=== PATIENT | female | born 1930 | race Caucasian/White ===

== ENCOUNTER 2018-04-05 09:51 | Inpatient (IN) | payer MEDICARE ==
[2018-04-05] VITALS (13 sets, daily range): BP systolic 119–152; BP diastolic 38–77
[~2018-04-05] VITALS: Ht 165.1 cm; Wt 61.2 kg
[2018-04-05] MEDS ORDERED: AMLODIPINE BES2.5 MG ORAL (09:55)
[2018-04-05] MEDS ORDERED: SYNTHROID137 MCG ORAL (09:55)
[2018-04-05] MEDS ORDERED: HYSINGLA ER20 MG PO (09:55)
[2018-04-05] MEDS ORDERED: PROTONIX20 MG ORAL (09:55)
[2018-04-05 10:13] LABS: HEMATOCRIT 17.8 % (37.0-47.0); MEAN CORPUSCULAR VOLUME 65 FL (80-99); PLATELET COUNT 199 K/UL (150-450); RED BLOOD COUNT 2.73 M/UL (4.20-5.40); WHITE BLOOD COUNT 10.8 K/UL (4.8-10.8)
[2018-04-05 10:21] LABS: ANION GAP 13 mmol/L (5-15); BLOOD UREA NITROGEN 41 mg/dL (7-18); CALCIUM 7.7 MG/DL (8.5-10.1); CARBON DIOXIDE 21 MMOL/L (21-32); CHLORIDE 109 MMOL/L (98-107); CREATININE 0.7 MG/DL (0.55-1.30); POTASSIUM 4.2 MMOL/L (3.5-5.1); SODIUM 143 MMOL/L (136-145)
[2018-04-05 10:27] LABS: ALANINE AMINOTRANSFERASE 12 U/L (12-78); ALBUMIN 2.9 G/DL (3.4-5.0); ALBUMIN/GLOBULIN RATIO 1.1 (1.0-2.7); ALKALINE PHOSPHATASE 57 U/L (46-116); ASPARTATE AMINO TRANSFERASE 15 U/L (15-37); BILIRUBIN,TOTAL 0.3 MG/DL (0.2-1.0)
--- NOTE | 2018-04-05 10:33 | Emergency Room Report ---
History of Present Illness General Chief Complaint: Gastrointestinal Bleed Source: EMS Present Illness HPI 88F by ambulance called by nephew from nephew's home. Very weak, diarrhea ? blood. Pt. very weak, c/o diarrhea. No cp, sob, abd pain. Further info from nephew: pt. is healthy, independent 88 lives in [place], here visiting and was on way to [place] when became suddenly weak, diarrhea. Pt. adds that she has had similar ~4-5x in the past. She has had several EGD/ colonoscopies in the past without identifying source. She has required blood transfusions she thinks three separate times. Presumed PUD. No anticoagulation meds. Meds: Synthroid, Citalopram, Pantoprazole Hx. limited due to clinical condition. No old EMR here. Allergies: Coded Allergies: No Known Allergies (Unverified , 04/05/18) Patient History Now: No Nursing Documentation-PMH Hx Gastrointestinal Problems: Yes Review of Systems Constitutional: Reports: see HPI Gastrointestinal: Reports: see HPI, nausea, melena, hematemesis All Other Systems: limited Physical Exam Vital Signs Date Time Temp Pulse Resp B/P (MAP) Pulse Ox O2 Delivery O2 Flow Rate FiO2 04/05/18 09:46 98.6 76 20 130/63 96 Room Air General Appearance: severe distress, lethargic, thin, other - pale Head: normocephalic, atraumatic Eyes: bilateral eye normal inspection - pale conjunctiva ENT: hearing grossly normal, normal voice Neck: full range of motion, supple Respiratory: no respiratory distress, speaking full sentences Rectal: black stool, heme positive stool Genitourinary: normal inspection Musculoskeletal: no calf tenderness Neurologic: other - nonfocal; ROA, answers questions; tired Psychiatric: mood/affect normal Skin: pallor, other - poor turgor Medical Decision Making Diagnostic Impression: Primary Impression: Gastrointestinal hemorrhage Additional Impression: Anemia due to GI blood loss ER Course acute microcytic anemia; no old labs to compare. Vitals continue to be very good HR 81, 132/54, alert and oriented d/w Dr. Samson d/w Dr. Martnis CRITICAL CARE NOTE: The patient was at risk for respiratory and cardiac failure and required aggressive intervention by me. Critical care time provided by me, excluding other separately billable procedures exceeded 35 minutes. This time included: Obtaining history from: patient, EMS, family Examination of the patient Development of treatment plan Ordering and reviewing diagnostic test results Discussion of treatment plan with natural remedy consultant, patient, family Coordinating care with nursing and respiratory therapy Supervising IV medications Multiple reassessments Discussion with the admitting physician EKG Diagnostic Results Rate: normal ST Segments: no acute changes ASA given to the pt in ED: No Rhythm Strip Diag. Results Rhythm Strip Time: 10:33 EP Interpretation: yes Rate: 88 Rhythm: NSR Last Vital Signs Date Time Temp Pulse Resp B/P (MAP) Pulse Ox O2 Delivery O2 Flow Rate FiO2 04/05/18 09:46 98.6 76 20 130/63 96 Room Air Status: unchanged Disposition: ADMITTED INPATIENT Condition: Critical Stewart Sterling M.D. Apr 05, 2018 10:33
[2018-04-05 11:39] LABS: APPEARANCE,URINE CLEAR; BILIRUBIN, URINE NEGATIVE (NEGATIVE); COLOR,URINE PALE YELLOW; GLUCOSE, URINE (UA) NEGATIVE (NEGATIVE); KETONES,URINE NEGATIVE (NEGATIVE); LEUKOCYTE ESTERASE ,URINE 1+ (NEGATIVE); NITRITE,URINE NEGATIVE (NEGATIVE); PH,URINE 6.5 (4.5-8.0); PROTEIN,URINE NEGATIVE (NEGATIVE); UROBILINOGEN,URINE NORMAL MG/DL (0.0-1.0)
--- NOTE | 2018-04-05 11:44 | Diagnostic Imaging Report ---
Indication: Chest pain Comparison: None A single view chest radiograph was obtained. Findings: No definite infiltrate or pulmonary vascular congestion identified. Large hiatal hernia noted. The heart is enlarged. The aorta is mildly enlarged consistent with atherosclerotic vascular disease. The bones are osteopenic. Impression: No acute disease
[2018-04-05 12:11] LABS: INR 1.1 (0.9-1.1)
--- NOTE | 2018-04-05 12:57 | GI Initial Consult Note ---
History of Present Illness General Date patient seen: Apr 05, 2018 Time patient seen: 12:51 Reason for Hospitalization: Gastrointestinal Bleed Reason for Consultation: GI BLEED Present Illness HPI 88F by ambulance called by nephew from nephew's home. Very weak, diarrhea ? blood. Pt. very weak, c/o diarrhea. No cp, sob, abd pain. Further info from nephew: pt. is healthy, independent 88 lives in [place], here visiting and was on way to [place] when became suddenly weak, diarrhea. Pt. adds that she has had similar ~4-5x in the past. She has had several EGD/ colonoscopies in the past without identifying source. She has required blood transfusions she thinks three separate times. Presumed PUD. No anticoagulation meds. Meds: Synthroid, Citalopram, Pantoprazole Hx. limited due to clinical condition. No old EMR here. GI consulted for GI bleed. Pt seen, awake A&O NAD with no active s/sx of N/V. The patient presents today with severe anemia, low hgb of 5.0, reports of multiple episodes of melena and one episode of coffee ground emesis. Family member at bedside, they report the patient has had multiple endoscopies and colonoscopies in the past, unable to find a specific source of bleed. In addition, she's also had a small bowel capsule endoscopy which yielded unremarkable results. The patient is currently being transfused. Home Meds Reported Medications Hydrocodone Bitartrate (Hysingla ER) 20 Mg Tab.er.24h, 20 MG PO, TAB 04/05/18 Pantoprazole Sodium (PROTONIX) 20 Mg Tablet.dr, 20 MG ORAL DAILY, TAB 04/05/18 Levothyroxine Sodium (SYNTHROID) 137 Mcg Tablet, ORAL DAILY, TAB Take in the morning on an empty stomach, at least 30 minutes before food. 04/05/18 Amlodipine Besylate* (AMLODIPINE BESYLATE*) 2.5 Mg Tablet, 2.5 MG ORAL DAILY, TAB 04/05/18 Med list reviewed/reconciled: Yes Allergies: Coded Allergies: No Known Allergies (Unverified , 04/05/18) Patient History History Provided By: Patient, Family Member PMH Narrative Hx Gastrointestinal Problems: Yes GI bleed unknown source HH multiple endoscopies and colonoscopies Social History: Denies: smoking, alcohol use, drug use, other Review of Systems All Other Systems: negative except mentioned in HPI Physical Exam Vital Signs Date Time Temp Pulse Resp B/P (MAP) Pulse Ox O2 Delivery O2 Flow Rate FiO2 04/05/18 09:46 98.6 76 20 130/63 96 Room Air Sp02 EP Interpretation: reviewed, normal Labs Laboratory Tests Test 04/05/18 10:00 04/05/18 11:10 04/05/18 11:46 White Blood Count 10.8 K/UL (4.8-10.8) Red Blood Count 2.73 M/UL (4.20-5.40) L Hemoglobin 5.0 G/DL (12.0-16.0) *L Hematocrit 17.8 % (37.0-47.0) L Mean Corpuscular Volume 65 FL (80-99) L Mean Corpuscular Hemoglobin 18.3 PG (27.0-31.0) L Mean Corpuscular Hemoglobin Concent 28.1 G/DL (32.0-36.0) L Red Cell Distribution Width 19.0 % (11.6-14.8) H Platelet Count 199 K/UL (150-450) Mean Platelet Volume 7.6 FL (6.5-10.1) Neutrophils (%) (Auto) % (45.0-75.0) Lymphocytes (%) (Auto) % (20.0-45.0) Monocytes (%) (Auto) % (1.0-10.0) Eosinophils (%) (Auto) % (0.0-3.0) Basophils (%) (Auto) % (0.0-2.0) Differential Total Cells Counted 100 Neutrophils % (Manual) 85 % (45-75) H Lymphocytes % (Manual) 12 % (20-45) L Monocytes % (Manual) 3 % (1-10) Eosinophils % (Manual) 0 % (0-3) Basophils % (Manual) 0 % (0-2) Band Neutrophils 0 % (0-8) Platelet Estimate Adequate Platelet Morphology Normal Hypochromasia 3+ Anisocytosis 1+ Microcytosis 1+ Sodium Level 143 MMOL/L (136-145) Potassium Level 4.2 MMOL/L (3.5-5.1) Chloride Level 109 MMOL/L (98-107) H Carbon Dioxide Level 21 MMOL/L (21-32) Anion Gap 13 mmol/L (5-15) Blood Urea Nitrogen 41 mg/dL (7-18) H Creatinine 0.7 MG/DL (0.55-1.30) Estimat Glomerular Filtration Rate mL/min (>60) Glucose Level 148 MG/DL (74-106) H Calcium Level 7.7 MG/DL (8.5-10.1) L Total Bilirubin 0.3 MG/DL (0.2-1.0) Aspartate Amino Transf (AST/SGOT) 15 U/L (15-37) Alanine Aminotransferase (ALT/SGPT) 12 U/L (12-78) Alkaline Phosphatase 57 U/L (46-116) Total Protein 5.6 G/DL (6.4-8.2) L Albumin 2.9 G/DL (3.4-5.0) L Globulin 2.7 g/dL Albumin/Globulin Ratio 1.1 (1.0-2.7) Lipase 76 U/L (73-393) Urine Color Pale yellow Urine Appearance Clear Urine pH 6.5 (4.5-8.0) Urine Specific [place] 1.010 (1.005-1.035) Urine Protein Negative (NEGATIVE) Urine Glucose (UA) Negative (NEGATIVE) Urine Ketones Negative (NEGATIVE) Urine Blood Negative (NEGATIVE) Urine Nitrite Negative (NEGATIVE) Urine Bilirubin Negative (NEGATIVE) Urine Urobilinogen Normal MG/DL (0.0-1.0) Urine Leukocyte Esterase 1+ (NEGATIVE) H Urine RBC 0-2 /HPF (0 - 2) Urine WBC 5-10 /HPF (0 - 2) H Urine Squamous Epithelial Cells Occasional /LPF Urine Bacteria Few /HPF (NONE) Prothrombin Time 11.4 SEC (9.30-11.50) Prothromb Time International Ratio 1.1 (0.9-1.1) General Appearance: well appearing, no apparent distress, alert, thin Head: normocephalic EENT: PERRL/EOMI, normal ENT inspection Neck: supple Respiratory: normal breath sounds, no respiratory distress Cardiovascular: normal rate Gastrointestinal: normal inspection, non tender, soft, normal bowel sounds, non -distended Rectal: deferred Genitourinary: no CVA tenderness Musculoskeletal: normal inspection, back normal Neurologic: normal inspection, alert, oriented x3, responsive Psychiatric: normal inspection, judgement/insight normal, memory normal Skin: normal inspection, normal color, no rash, warm/dry, palpation normal, well hydrated Lymphatic: normal inspection, no adenopathy GI: Plan Problems: (1) Gastrointestinal hemorrhage (2) Anemia due to GI blood loss Plan EGD scheduled for today. - maintain NPO transfusion currently running will follow with additional recommendations post procedure Discussed with Dr. Park. Thank you for this patient referral, we will follow. The patient was seen and examined at bedside and all new and available data was reviewed in the patients chart. I agree with the above findings, impression and plan. (Patient seen earlier today. Signature stamp does not reflect patient encounter time.). - MD Elsa Emery,[facility] ADDICTION COUNSELOR Apr 05, 2018 12:57
[2018-04-05] MEDS ORDERED: Nitroglycerin Subl 0.4mg tab SL PRN (13:15)
--- NOTE | 2018-04-05 13:48 | Consultation ---
History of Present Illness General Date patient seen: Apr 05, 2018 Chief Complaint: Gastrointestinal Bleed Reason for Consultation: GI BLEED Present Illness HPI 88 year old female with hx of hypothyroid, tremors, depression brought in by ambulance for CC of weakness , diarrhea, with blood. No cp, sob, abd pain. Pt. adds that she has had similar ~4-5x in the past. She has had several EGD/ colonoscopies in the past without identifying source. She has required blood transfusions she thinks three separate times. Her Hem was around 5. She was started to ge PRBC in ER and admitted to [facility]. Pt was seen in ER room 6 while primary was present as well. Allergies: Coded Allergies: No Known Allergies (Unverified , 04/05/18) Medication History Scheduled Amlodipine Besylate* (Amlodipine Besylate*), 2.5 MG ORAL DAILY, (Reported) Levothyroxine Sodium (Synthroid), Unknown Dose ORAL DAILY, (Reported) Pantoprazole Sodium (Protonix), 20 MG ORAL DAILY, (Reported) Miscellaneous Medications Hydrocodone Bitartrate (Hysingla ER), 20 MG PO, (Reported) Patient History Healthcare decision maker Resuscitation status Advanced Directive on File Past Medical/Surgical History Past Medical/Surgical History: (1) Hypothyroidism (2) History of hypertension Review of Systems All Other Systems: negative except mentioned in HPI Physical Exam General Appearance: WD/WN Lines, tubes and drains: peripheral HEENT: normocephalic, atraumatic Neck: non-tender, supple Respiratory/Chest: chest wall non-tender, lungs clear Breasts: no masses Cardiovascular/Chest: normal rate Abdomen: normal bowel sounds Last 24 Hour Vital Signs Date Time Temp Pulse Resp B/P (MAP) Pulse Ox O2 Delivery O2 Flow Rate FiO2 04/05/18 13:19 77 16 128/46 99 Room Air 04/05/18 12:20 80 18 130/70 99 Room Air 04/05/18 12:20 98.3 80 18 04/05/18 12:05 83 18 122/38 99 Room Air 04/05/18 12:05 97.9 83 20 04/05/18 10:51 89 20 134/56 99 Room Air 04/05/18 10:00 76 20 Room Air 04/05/18 09:46 98.6 76 20 130/63 96 Room Air Laboratory Tests Test 04/05/18 10:00 04/05/18 11:10 04/05/18 11:46 White Blood Count 10.8 K/UL (4.8-10.8) Red Blood Count 2.73 M/UL (4.20-5.40) L Hemoglobin 5.0 G/DL (12.0-16.0) *L Hematocrit 17.8 % (37.0-47.0) L Mean Corpuscular Volume 65 FL (80-99) L Mean Corpuscular Hemoglobin 18.3 PG (27.0-31.0) L Mean Corpuscular Hemoglobin Concent 28.1 G/DL (32.0-36.0) L Red Cell Distribution Width 19.0 % (11.6-14.8) H Platelet Count 199 K/UL (150-450) Mean Platelet Volume 7.6 FL (6.5-10.1) Neutrophils (%) (Auto) % (45.0-75.0) Lymphocytes (%) (Auto) % (20.0-45.0) Monocytes (%) (Auto) % (1.0-10.0) Eosinophils (%) (Auto) % (0.0-3.0) Basophils (%) (Auto) % (0.0-2.0) Differential Total Cells Counted 100 Neutrophils % (Manual) 85 % (45-75) H Lymphocytes % (Manual) 12 % (20-45) L Monocytes % (Manual) 3 % (1-10) Eosinophils % (Manual) 0 % (0-3) Basophils % (Manual) 0 % (0-2) Band Neutrophils 0 % (0-8) Platelet Estimate Adequate Platelet Morphology Normal Hypochromasia 3+ Anisocytosis 1+ Microcytosis 1+ Sodium Level 143 MMOL/L (136-145) Potassium Level 4.2 MMOL/L (3.5-5.1) Chloride Level 109 MMOL/L (98-107) H Carbon Dioxide Level 21 MMOL/L (21-32) Anion Gap 13 mmol/L (5-15) Blood Urea Nitrogen 41 mg/dL (7-18) H Creatinine 0.7 MG/DL (0.55-1.30) Estimat Glomerular Filtration Rate mL/min (>60) Glucose Level 148 MG/DL (74-106) H Calcium Level 7.7 MG/DL (8.5-10.1) L Total Bilirubin 0.3 MG/DL (0.2-1.0) Aspartate Amino Transf (AST/SGOT) 15 U/L (15-37) Alanine Aminotransferase (ALT/SGPT) 12 U/L (12-78) Alkaline Phosphatase 57 U/L (46-116) Total Protein 5.6 G/DL (6.4-8.2) L Albumin 2.9 G/DL (3.4-5.0) L Globulin 2.7 g/dL Albumin/Globulin Ratio 1.1 (1.0-2.7) Lipase 76 U/L (73-393) Urine Color Pale yellow Urine Appearance Clear Urine pH 6.5 (4.5-8.0) Urine Specific [place] 1.010 (1.005-1.035) Urine Protein Negative (NEGATIVE) Urine Glucose (UA) Negative (NEGATIVE) Urine Ketones Negative (NEGATIVE) Urine Blood Negative (NEGATIVE) Urine Nitrite Negative (NEGATIVE) Urine Bilirubin Negative (NEGATIVE) Urine Urobilinogen Normal MG/DL (0.0-1.0) Urine Leukocyte Esterase 1+ (NEGATIVE) H Urine RBC 0-2 /HPF (0 - 2) Urine WBC 5-10 /HPF (0 - 2) H Urine Squamous Epithelial Cells Occasional /LPF Urine Bacteria Few /HPF (NONE) Prothrombin Time 11.4 SEC (9.30-11.50) Prothromb Time International Ratio 1.1 (0.9-1.1) Microbiology Date/Time Source Procedure Growth Status 04/05/18 11:10 Rectal Mucosa Received Height (Feet): 5 Height (Inches): 5.00 Weight (Pounds): 150 Medications Current Medications Medications (Trade) Dose Ordered Sig/Kevin Route PRN Reason Start Time Stop Time Status Last Admin Dose Admin Acetaminophen (Tylenol) 650 mg Q4H PRN ORAL fever 04/05/18 13:15 05/05/18 13:14 Dextrose (Dextrose 50%) 25 ml Q30M PRN IV Hypoglycemia 04/05/18 13:15 05/05/18 13:14 Dextrose (Dextrose 50%) 50 ml Q30M PRN IV Hypoglycemia 04/05/18 13:15 05/05/18 13:14 Dextrose/Sodium Chloride 1,000 ml @ 100 mls/hr Q10H IV 04/05/18 15:00 05/05/18 14:59 Levothyroxine Sodium (Synthroid) 125 mcg DAILY@0630 ORAL 04/06/18 06:30 05/06/18 06:29 Nitroglycerin (Ntg) 0.4 mg Q5M X 3 DOSES PRN SL Prn Chest Pain 04/05/18 13:15 05/05/18 13:14 Ondansetron HCl (Zofran) 4 mg Q6H PRN IVP Nausea & Vomiting 04/05/18 13:15 05/05/18 13:14 Temazepam (Restoril) 15 mg HSPRN PRN ORAL Insomnia 04/05/18 13:15 04/12/18 13:14 Assessment/Plan Problem List: (1) Gastrointestinal hemorrhage ICD Codes: K92.2 - Gastrointestinal hemorrhage, unspecified SNOMED: 74977968 (2) Anemia due to GI blood loss 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
--- NOTE | 2018-04-05 14:28 | Pre-Procedure Note/Attestation ---
Pre-Procedure Note/Attestation Complete Prior to Procedure Planned Procedure: not applicable Procedure Narrative: egd Indications for Procedure Pre-Operative Diagnosis: GIB Attestation I attest that I discussed the nature of the procedure; its benefits; risks and complications; and alternatives (and the risks and benefits of such alternatives ), prior to the procedure, with the patient (or the patient's legal technical sales representatives). I attest that, if there was a reasonable possibility of needing a blood transfusion, the patient (or the patient's legal technical sales representatives) was given the [facility] standardized written summary, pursuant to the Manuel Kailey Blood Safety Act ([place] Health and Safety Code # 1645, as amended). I attest that I re-evaluated the patient just prior to the surgery and that there has been no change in the patient's H&P, except as documented below: Molina Park MD Apr 05, 2018 14:28
[2018-04-05] MEDS ORDERED: Propofol 200mg/20ml IV ONE (14:30)
[2018-04-05] MEDS ORDERED: Lidocaine 1% MPF 10mg/ml 5ml ONE (14:30)
[2018-04-05] MEDS ORDERED: NS 500ML IVPB ONE (14:35)
--- NOTE | 2018-04-05 14:49 | Endoscopy Procedure Note ---
Endoscopy Procedure Note General Indication for Procedure: gib Procedures Performed: EGD Operative Findings/Diagnosis: large HH, gastritis Specimen: yes Pt Tolerated Procedure Well: Yes Estimated Blood Loss: none Anesthesia Anesthesiologist: alexandro Anesthesia: MAC Inserted Devices Implant(s) used?: No GI Core Measures 50 yrs or older w/o bx or poly: Not Applicable 10yrs. F/U not recommended: Not Applicable Molina Park MD Apr 05, 2018 14:49
[2018-04-05] MEDS ORDERED: Midazolam 2mg/2ml Inj IVP PRN (15:00)
[2018-04-05] MEDS ORDERED: Atropine Inj 1mg/10ml Syr IV PRN (15:00)
[2018-04-05] MEDS ORDERED: DiphenhydrAMINE 50mg/ml Inj IVP PRN (15:00)
[2018-04-05] MEDS ORDERED: fentaNYL 100 mcg/2 mL IV PRN (15:00)
--- NOTE | 2018-04-05 15:05 | Anethesia Preoperative Eval ---
Anesthesia Pre-op PMH/ROS General Date of Evaluation: Apr 05, 2018 Time of Evaluation: 14:30 Anesthesiologist: alexandro ASA Score: ASA 4 Mallampati Score Class I : Soft palate, uvula, fauces, pillars visible Class II: Soft palate, uvula, fauces visible Class III: Soft palate, base of uvula visible Class IV: Only hard plate visible Mallampati Classification: Class II Surgeon: sanjay Diagnosis: gi bleed Surgical Procedure: egd Anesthesia History: none Family History: no anesthesia problems Allergies: Coded Allergies: No Known Allergies (Unverified , 04/05/18) Medications: see eMAR Patient NPO?: Yes Past Medical History Cardiovascular: Reports: HTN Endocrine: Reports: hypothyroidism Anesthesia Pre-op Phys. Exam Physician Exam Last Vital Signs Date Time Temp Pulse Resp B/P (MAP) Pulse Ox O2 Delivery O2 Flow Rate FiO2 04/05/18 14:00 72 18 119/57 99 Room Air 04/05/18 13:58 98.5 Constitutional: NAD Neurologic: CN 2-12 intact Cardiovascular: RRR Respiratory: CTA Gastrointestinal: S/NT/ND Airway Exam Mallampati Score: Class II MO: limited Neck: flexible TMD: 2fb ROM: limited Anesthesia Pre-op A/P Labs Hematology Test 04/05/18 10:00 White Blood Count 10.8 K/UL (4.8-10.8) Red Blood Count 2.73 M/UL (4.20-5.40) L Hemoglobin 5.0 G/DL (12.0-16.0) *L Hematocrit 17.8 % (37.0-47.0) L Mean Corpuscular Volume 65 FL (80-99) L Mean Corpuscular Hemoglobin 18.3 PG (27.0-31.0) L Mean Corpuscular Hemoglobin Concent 28.1 G/DL (32.0-36.0) L Red Cell Distribution Width 19.0 % (11.6-14.8) H Platelet Count 199 K/UL (150-450) Mean Platelet Volume 7.6 FL (6.5-10.1) Neutrophils (%) (Auto) % (45.0-75.0) Lymphocytes (%) (Auto) % (20.0-45.0) Monocytes (%) (Auto) % (1.0-10.0) Eosinophils (%) (Auto) % (0.0-3.0) Basophils (%) (Auto) % (0.0-2.0) Differential Total Cells Counted 100 Neutrophils % (Manual) 85 % (45-75) H Lymphocytes % (Manual) 12 % (20-45) L Monocytes % (Manual) 3 % (1-10) Eosinophils % (Manual) 0 % (0-3) Basophils % (Manual) 0 % (0-2) Band Neutrophils 0 % (0-8) Platelet Estimate Adequate Platelet Morphology Normal Hypochromasia 3+ Anisocytosis 1+ Microcytosis 1+ Coagulation Test 04/05/18 11:46 Prothrombin Time 11.4 SEC (9.30-11.50) Prothromb Time International Ratio 1.1 (0.9-1.1) Chemistry Test 04/05/18 10:00 Sodium Level 143 MMOL/L (136-145) Potassium Level 4.2 MMOL/L (3.5-5.1) Chloride Level 109 MMOL/L (98-107) H Carbon Dioxide Level 21 MMOL/L (21-32) Anion Gap 13 mmol/L (5-15) Blood Urea Nitrogen 41 mg/dL (7-18) H Creatinine 0.7 MG/DL (0.55-1.30) Estimat Glomerular Filtration Rate mL/min (>60) Glucose Level 148 MG/DL (74-106) H Calcium Level 7.7 MG/DL (8.5-10.1) L Total Bilirubin 0.3 MG/DL (0.2-1.0) Aspartate Amino Transf (AST/SGOT) 15 U/L (15-37) Alanine Aminotransferase (ALT/SGPT) 12 U/L (12-78) Alkaline Phosphatase 57 U/L (46-116) Total Protein 5.6 G/DL (6.4-8.2) L Albumin 2.9 G/DL (3.4-5.0) L Globulin 2.7 g/dL Albumin/Globulin Ratio 1.1 (1.0-2.7) Lipase 76 U/L (73-393) Risk Assessment & Plan Assessment: [id number] Plan: mac Status Change Before Surgery: No Pre-Antibiotics Drug: Diana Shah MD Apr 05, 2018 15:05
--- NOTE | 2018-04-05 15:09 | Immediate Post-Op Evaluation ---
Immediate Post-Op Evalulation Immediate Post-Op Evalulation Procedure: egd w/bx Date of Evaluation: Apr 05, 2018 Time of Evaluation: 15:09 IV Fluids: 50ml 0.9ns Blood Products: 1 unit pRBCs prior to the procedure Estimated Blood Loss: negligible Blood Pressure Systolic: 142 Blood Pressure Diastolic: 66 Pulse Rate: 73 Respiratory Rate: 18 O2 Sat by Pulse Oximetry: 99 Temperature (Fahrenheit): 98.8 Pain Score (1-10): 0 Nausea: No Vomiting: No Complications none Patient Status: awake, reacts, patent Hydration Status: adequate Drug: Diana Shah MD Apr 05, 2018 15:09
--- NOTE | 2018-04-05 15:11 | 48 Hour Post Anesthesia Eval ---
Post Anesthesia Evaluation Procedure: egd w/bx Date of Evaluation: Apr 05, 2018 Time of Evaluation: 14:11 Blood Pressure Systolic: 152 0: 67 Pulse Rate: 73 Respiratory Rate: 18 Temperature (Fahrenheit): 98.8 O2 Sat by Pulse Oximetry: 99 Airway: patent Nausea: No Vomiting: No Pain Intensity: 0 Hydration Status: adequate Cardiopulmonary Status: stable Mental Status/LOC: patient returned to baseline Post-Anesthesia Complications: none Follow-up care needed: N/A Diana Miller MD Apr 05, 2018 15:11
[2018-04-05] MEDS ORDERED: Polyethylene Glycol 238gm bottle ORAL SCH (16:00)
[2018-04-05] MEDS: D5NS 1,000 ML IV SCH (16:56)
--- NOTE | 2018-04-05 21:00 | Procedure Note ---
DATE OF PROCEDURE: 04/05/2018 SURGEON: Molina Park M.D. ANESTHESIOLOGIST: Dr. Parmar. PROCEDURE: Upper endoscopy with biopsy. ANESTHESIA: Per Dr. Parmar. INSTRUMENT: Olympus adult flexible upper endoscope. INDICATION: GI bleeding. The procedure, risks, benefits, and possible consequences, including hemorrhage, aspiration, perforation and infection, and alternative treatments, were explained to the patient/legal guardian by Dr. Molina Park and the patient/legal guardian understood and accepted these risks. DESCRIPTION OF PROCEDURE: After informed consent was obtained and the patient was adequately sedated, Olympus upper endoscope was advanced from the mouth into the second portion of the duodenum and retroflexion was performed in the stomach. The patient had evidence of a large hiatal hernia. No evidence of any active upper GI bleeding at this time. There was some retained food material in the stomach making examination somewhat limited, but there was no any blood or blood products in the stomach nor in the duodenum. Random biopsy from antrum was obtained to rule out H. pylori infection. The rest of the examination grossly looked within normal limits. SUMMARY OF FINDINGS: 1. Large hiatal hernia. 2. No evidence of any active upper GI bleeding at this time. 3. Some retained food material in the stomach. 4. Gastritis, status post biopsy. RECOMMENDATIONS: 1. We will follow biopsy results. 2. The patient most probably will benefit from colonoscopy. We will plan for tomorrow. Molina Park M.D. DR: Kristyn JOB#: [id number] CC:
[2018-04-06] VITALS: BP 132/70
--- NOTE | 2018-04-06 00:15 | History and Physical Report ---
DATE OF ADMISSION: 04/05/2018 TIME SEEN: 04/05/2018 at 2 p.m. ATTENDING PHYSICIAN: Hima Martins D.O. CONSULTANTS: 1. Flor Carreon M.D. 2. Dioni Cabrera M.D. CHIEF COMPLAINT: Weakness, lethargy, GI bleed, and severe anemia. BRIEF HISTORY: An 88-year-old female visiting from [place], apparently past 10 days getting weaker and weaker. Noted some dark stool this morning, came to [place], diagnosed with acute GI bleed with a hemoglobin of 5. In the ER right now, getting transferred to GI lab shortly. REVIEW OF SYSTEMS: No chest pain. Slight short of breath. No nausea, vomiting, or diarrhea. PAST MEDICAL HISTORY: None. PAST SURGICAL HISTORY: Gallbladder and hysterectomy. ALLERGIES: Denies. SOCIAL HISTORY: Positive smoking. Occasional alcohol. No intravenous drug abuse. FAMILY HISTORY: Noncontributory. PHYSICAL EXAMINATION: GENERAL: Calm in bed, oriented x3, in no acute distress. VITAL SIGNS: Temperature is 98 degrees, pulse 72, respirations 18, and blood pressure 119/57. CARDIOVASCULAR: No murmurs. LUNGS: Distant and clear. ABDOMEN: Bowel sounds positive. Nontender and nondistended. EXTREMITIES: Show no cyanosis, clubbing, or edema. NEUROLOGIC: The patient moves all extremities, slightly weak. LABORATORY DATA: Labs at this time show hemoglobin 5 and hematocrit 17.8, otherwise CBC is normal. BMP shows chloride 109, BUN 41, and glucose 148, otherwise normal. Albumin is 2.9. INR is 1.1. PTT is 24. Urinalysis show 1+ leukocyte esterase. MEDICATIONS: Include levothyroxine, Tylenol, temazepam, nitroglycerin, Zofran, and famotidine. ASSESSMENT: 1. Gastrointestinal bleed. 2. Anemia. 3. . 4. Hypertension. 5. Hypothyroid. 6. Malnutrition. PLAN: 1. Transfuse. 2. GI lab right now. 3. Blood pressure control. 4. Resume home medications. 5. OT, PT and dietary evaluation. 6. CBC and BMP in the morning. We will continue to follow the patient. Hima Martins D.O. DR: PANKAJ JOB#: [id number] CC:
[2018-04-06] MEDS: D5NS 1,000 ML IV SCH ×3 (00:30→20:17)
[2018-04-06 04:00] VITALS: BP 146/83
[2018-04-06 05:01] LABS: HEMATOCRIT 23.3 % (37.0-47.0); HEMOGLOBIN 7.1 G/DL (12.0-16.0); MEAN CORPUSCULAR VOLUME 73 FL (80-99); PLATELET COUNT 147 K/UL (150-450); RED BLOOD COUNT 3.18 M/UL (4.20-5.40); RED CELL DISTRIBUTION WIDTH 20.9 % (11.6-14.8)
[2018-04-06 05:41] LABS: ALBUMIN 2.7 G/DL (3.4-5.0); ALKALINE PHOSPHATASE 53 U/L (46-116); AMYLASE 29 U/L (25-115); ANION GAP 9 mmol/L (5-15); ASPARTATE AMINO TRANSFERASE 16 U/L (15-37); BILIRUBIN,TOTAL 0.3 MG/DL (0.2-1.0); BLOOD UREA NITROGEN 24 mg/dL (7-18); CALCIUM 7.9 MG/DL (8.5-10.1); CARBON DIOXIDE 22 MMOL/L (21-32); CHLORIDE 114 MMOL/L (98-107); CREATININE 0.7 MG/DL (0.55-1.30); POTASSIUM 3.3 MMOL/L (3.5-5.1); SODIUM 145 MMOL/L (136-145)
[2018-04-06 05:57] LABS: ALANINE AMINOTRANSFERASE 14 U/L (12-78)
[2018-04-06] MEDS: Levothyroxine 125mcg tab ORAL SCH (06:01)
[2018-04-06 08:00] VITALS: BP 119/54
--- NOTE | 2018-04-06 11:15 | Pulmonology Progress Note ---
Assessment/Plan Problems: (1) Gastrointestinal hemorrhage (2) Anemia due to GI blood loss (3) Essential tremor (4) Hypothyroidism (5) History of hypertension Assessment/Plan add Alprazolam, as requested by patient for tremors NPO iv fluids prbc prn to keep Hem> 8 H2 blockers continue synthryroid monitor BP check T3, T4 dvt prophylaxis symptomatic treatment Subjective Allergies: Coded Allergies: No Known Allergies (Unverified , 04/05/18) Objective Last 24 Hour Vital Signs Date Time Temp Pulse Resp B/P (MAP) Pulse Ox O2 Delivery O2 Flow Rate FiO2 04/06/18 08:00 98.4 63 19 119/54 (75) 100 04/06/18 04:00 97.5 63 20 146/83 (104) 100 04/06/18 04:00 Nasal Cannula 2.0 04/06/18 03:30 68 04/06/18 00:00 97.7 62 20 132/70 (90) 100 04/06/18 00:00 Nasal Cannula 2.0 04/05/18 23:18 64 04/05/18 20:11 Nasal Cannula 2.0 04/05/18 20:00 98.1 72 20 131/68 (89) 100 04/05/18 20:00 98.1 04/05/18 20:00 73 04/05/18 16:00 98.9 74 21 147/77 (100) 100 04/05/18 15:29 Nasal Cannula 2.0 04/05/18 15:29 98.6 77 20 128/70 (89) 98 04/05/18 15:15 98.7 72 18 145/60 99 Nasal Cannula 3 04/05/18 15:11 73 18 99 04/05/18 15:09 73 18 99 04/05/18 15:02 74 19 142/66 99 Nasal Cannula 3 04/05/18 14:57 74 17 152/67 99 Nasal Cannula 3 04/05/18 14:52 77 22 142/66 99 Nasal Cannula 3 04/05/18 14:47 98.8 73 24 119/75 99 Nasal Cannula 3 04/05/18 14:00 98.5 72 18 04/05/18 14:00 72 18 119/57 99 Room Air 04/05/18 13:58 98.5 72 18 119/57 98 Room Air 11/28/18 13:19 77 16 128/46 99 Room Air 04/05/18 12:20 80 18 130/70 99 Room Air 04/05/18 12:20 98.3 80 18 04/05/18 12:05 83 18 122/38 99 Room Air 04/05/18 12:05 97.9 83 20 Intake and Output 04/05/18 04/06/18 18:59 06:59 Intake Total 1425 ml 750 ml Output Total 100 ml Balance 1325 ml 750 ml Intake Oral 0 ml IV Total 1150 ml 750 ml Blood Product 275 ml Output Urine Total 100 ml # Voids 1 3 # Bowel Movements 1 Microbiology Date/Time Source Procedure Growth Status 04/05/18 11:10 Rectal Mucosa - Preliminary Resulted Laboratory Tests 04/05/18 11:46: Prothrombin Time 11.4, Prothromb Time International Ratio 1.1 04/06/18 03:11: Prothrombin Time 11.0, Prothromb Time International Ratio 1.0, White Blood Count 7.0, Red Blood Count 3.18L, Hemoglobin 7.1#L, Hematocrit 23.3#L, Mean Corpuscular Volume 73#L, Mean Corpuscular Hemoglobin 22.5L, Mean Corpuscular Hemoglobin Concent 30.7L, Red Cell Distribution Width 20.9H, Platelet Count 147L , Mean Platelet Volume 7.8, Neutrophils (%) (Auto) , Lymphocytes (%) (Auto) , Monocytes (%) (Auto) , Eosinophils (%) (Auto) , Basophils (%) (Auto) , Differential Total Cells Counted 100, Neutrophils % (Manual) 65, Lymphocytes % ( Manual) 30, Monocytes % (Manual) 2, Eosinophils % (Manual) 3, Basophils % ( Manual) 0, Band Neutrophils 0, Platelet Estimate DecreasedL, Platelet Morphology Normal, Polychromasia 1+, Hypochromasia 2+, Anisocytosis 2+, Microcytosis 1+, Activated Partial Thromboplast Time 23, Sodium Level 145, Potassium Level 3.3L, Chloride Level 114H, Carbon Dioxide Level 22, Anion Gap 9 , Blood Urea Nitrogen 24H, Creatinine 0.7, Estimat Glomerular Filtration Rate , Glucose Level 109H, Calcium Level 7.9L, Total Bilirubin 0.3, Aspartate Amino Transf (AST/SGOT) 16, Alanine Aminotransferase (ALT/SGPT) 14, Alkaline Phosphatase 53, Total Protein 5.3L, Albumin 2.7L, Globulin 2.6, Albumin/ Globulin Ratio 1.0, Amylase Level 29, Lipase 96 Current Medications Medications (Trade) Dose Ordered Sig/Kevin Route PRN Reason Start Time Stop Time Status Last Admin Dose Admin Acetaminophen (Tylenol) 650 mg Q4H PRN ORAL fever 04/05/18 13:15 05/05/18 13:14 04/05/18 19:05 Dextrose (Dextrose 50%) 25 ml Q30M PRN IV Hypoglycemia 04/05/18 13:15 05/05/18 13:14 Dextrose (Dextrose 50%) 50 ml Q30M PRN IV Hypoglycemia 04/05/18 13:15 05/05/18 13:14 Dextrose/Sodium Chloride 1,000 ml @ 100 mls/hr Q10H IV 04/05/18 15:00 05/05/18 14:59 04/06/18 10:05 Diphenhydramine HCl (Benadryl) 25 mg HSPRN PRN ORAL Insomnia 04/05/18 20:15 05/05/18 20:14 04/06/18 04:09 Levothyroxine Sodium (Synthroid) 125 mcg DAILY@0630 ORAL 04/06/18 06:30 05/06/18 06:29 04/06/18 06:01 Nitroglycerin (Ntg) 0.4 mg Q5M X 3 DOSES PRN SL Prn Chest Pain 04/05/18 13:15 05/05/18 13:14 Ondansetron HCl (Zofran) 4 mg Q6H PRN IVP Nausea & Vomiting 04/05/18 13:15 05/05/18 13:14 Dioni Cabrera MD Apr 06, 2018 11:15
[2018-04-06 12:00] VITALS: BP 139/63
[2018-04-06] MEDS: ALPRAZolam 0.25mg tab ORAL SCH ×2 (13:55→18:08)
--- NOTE | 2018-04-06 15:17 | General Progress Note ---
Assessment/Plan Problem List: (1) HTN (hypertension) ICD Codes: I10 - Essential (primary) hypertension SNOMED: 36603638 (2) Hypothyroid ICD Codes: E03.9 - Hypothyroidism, unspecified SNOMED: 88154982 (3) Malnutrition ICD Codes: E46 - Unspecified protein-calorie malnutrition SNOMED: 76337317 (4) History of hypertension ICD Codes: Z86.79 - Personal history of other diseases of the circulatory system SNOMED: 012385817 (5) Hypothyroidism ICD Codes: E03.9 - Hypothyroidism, unspecified SNOMED: 64430413 (6) Gastrointestinal hemorrhage ICD Codes: K92.2 - Gastrointestinal hemorrhage, unspecified SNOMED: 54287690 (7) Anemia due to GI blood loss 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) SNOMED: 117479514, 24141440 Status: unchanged Subjective Constitutional: Reports: weakness Respiratory: Reports: shortness of breath Allergies: Coded Allergies: No Known Allergies (Unverified , 04/05/18) All Systems: reviewed and negative except above Subjective getting transfusion Objective Last 24 Hour Vital Signs Date Time Temp Pulse Resp B/P (MAP) Pulse Ox O2 Delivery O2 Flow Rate FiO2 04/06/18 12:00 98.2 93 16 139/63 (88) 100 04/06/18 12:00 63 04/06/18 12:00 Nasal Cannula 2.0 04/06/18 08:00 58 04/06/18 08:00 98.4 63 19 119/54 (75) 100 04/06/18 08:00 Nasal Cannula 2.0 04/06/18 04:00 97.5 63 20 146/83 (104) 100 04/06/18 04:00 Nasal Cannula 2.0 04/06/18 03:30 68 04/06/18 00:00 97.7 62 20 132/70 (90) 100 04/06/18 00:00 Nasal Cannula 2.0 04/05/18 23:18 64 04/05/18 20:11 Nasal Cannula 2.0 04/05/18 20:00 98.1 72 20 131/68 (89) 100 04/05/18 20:00 98.1 04/05/18 20:00 73 04/05/18 16:00 98.9 74 21 147/77 (100) 100 04/05/18 15:29 Nasal Cannula 2.0 04/05/18 15:29 98.6 77 20 128/70 (89) 98 Intake and Output 04/05/18 04/06/18 18:59 06:59 Intake Total 1425 ml 750 ml Output Total 100 ml Balance 1325 ml 750 ml Intake Oral 0 ml IV Total 1150 ml 750 ml Blood Product 275 ml Output Urine Total 100 ml # Voids 1 3 # Bowel Movements 1 Laboratory Tests 04/06/18 03:11: White Blood Count 7.0, Red Blood Count 3.18L, Hemoglobin 7.1#L, Hematocrit 23.3# L, Mean Corpuscular Volume 73#L, Mean Corpuscular Hemoglobin 22.5L, Mean Corpuscular Hemoglobin Concent 30.7L, Red Cell Distribution Width 20.9H, Platelet Count 147L, Mean Platelet Volume 7.8, Neutrophils (%) (Auto) , Lymphocytes (%) (Auto) , Monocytes (%) (Auto) , Eosinophils (%) (Auto) , Basophils (%) (Auto) , Differential Total Cells Counted 100, Neutrophils % ( Manual) 65, Lymphocytes % (Manual) 30, Monocytes % (Manual) 2, Eosinophils % ( Manual) 3, Basophils % (Manual) 0, Band Neutrophils 0, Platelet Estimate DecreasedL, Platelet Morphology Normal, Polychromasia 1+, Hypochromasia 2+, Anisocytosis 2+, Microcytosis 1+, Prothrombin Time 11.0, Prothromb Time International Ratio 1.0, Activated Partial Thromboplast Time 23, Sodium Level 145, Potassium Level 3.3L, Chloride Level 114H, Carbon Dioxide Level 22, Anion Gap 9, Blood Urea Nitrogen 24H, Creatinine 0.7, Estimat Glomerular Filtration Rate , Glucose Level 109H, Calcium Level 7.9L, Total Bilirubin 0.3, Aspartate Amino Transf (AST/SGOT) 16, Alanine Aminotransferase (ALT/SGPT) 14, Alkaline Phosphatase 53, Total Protein 5.3L, Albumin 2.7L, Globulin 2.6, Albumin/ Globulin Ratio 1.0, Amylase Level 29, Lipase 96 Height (Feet): 5 Height (Inches): 5.00 Weight (Pounds): 135 General Appearance: lethargic EENT: normal ENT inspection Neck: normal alignment Cardiovascular: normal peripheral pulses, normal rate, regular rhythm Respiratory/Chest: chest wall non-tender, lungs clear, normal breath sounds Abdomen: normal bowel sounds, non tender, soft Extremities: normal inspection Edema: no edema noted Arm (L), no edema noted Arm (R), no edema noted Leg (L), no edema noted Leg (R), no edema noted Pedal (L), no edema noted Pedal (R), no edema noted Generalized Neurologic: responsive, motor weakness Skin: normal pigmentation, warm/dry Hima Martins Apr 06, 2018 15:17
[2018-04-06 16:00] VITALS: BP 102/65
[2018-04-06] MEDS ORDERED: Tubing Blood Filter IV ONE (16:41)
[2018-04-06] MEDS ORDERED: NS 275ml ONE (16:41)
--- NOTE | 2018-04-06 19:28 | General Progress Note ---
Assessment/Plan Assessment/Plan Assessment - Anemia - negative prior GI w/u - declines further w/u here Recommendations - RBC transfusion today - monitor H&H - d/c planning - f/u with prior MD Subjective Allergies: Coded Allergies: No Known Allergies (Unverified , 04/05/18) Subjective Above noted d/w family at bedside patient refusing colonoscopy wants to be stablized and d/c'd she wants to f/u with regular MD team back home Objective Last 24 Hour Vital Signs Date Time Temp Pulse Resp B/P (MAP) Pulse Ox O2 Delivery O2 Flow Rate FiO2 04/06/18 16:00 99.1 80 22 102/65 (77) 100 04/06/18 16:00 Nasal Cannula 2.0 04/06/18 16:00 62 04/06/18 12:00 98.2 93 16 139/63 (88) 100 04/06/18 12:00 63 04/06/18 12:00 Nasal Cannula 2.0 04/06/18 08:00 58 04/06/18 08:00 98.4 63 19 119/54 (75) 100 04/06/18 08:00 Nasal Cannula 2.0 04/06/18 04:00 97.5 63 20 146/83 (104) 100 04/06/18 04:00 Nasal Cannula 2.0 04/06/18 03:30 68 04/06/18 00:00 97.7 62 20 132/70 (90) 100 04/06/18 00:00 Nasal Cannula 2.0 04/05/18 23:18 64 04/05/18 20:11 Nasal Cannula 2.0 04/05/18 20:00 98.1 72 20 131/68 (89) 100 04/05/18 20:00 98.1 04/05/18 20:00 73 Intake and Output 04/05/18 04/06/18 19:00 07:00 Intake Total 1525 ml 750 ml Output Total 100 ml Balance 1425 ml 750 ml Intake Oral 0 ml IV Total 1250 ml 750 ml Blood Product 275 ml Output Urine Total 100 ml # Voids 1 3 # Bowel Movements 1 Laboratory Tests 04/06/18 03:11: White Blood Count 7.0, Red Blood Count 3.18L, Hemoglobin 7.1#L, Hematocrit 23.3# L, Mean Corpuscular Volume 73#L, Mean Corpuscular Hemoglobin 22.5L, Mean Corpuscular Hemoglobin Concent 30.7L, Red Cell Distribution Width 20.9H, Platelet Count 147L, Mean Platelet Volume 7.8, Neutrophils (%) (Auto) , Lymphocytes (%) (Auto) , Monocytes (%) (Auto) , Eosinophils (%) (Auto) , Basophils (%) (Auto) , Differential Total Cells Counted 100, Neutrophils % ( Manual) 65, Lymphocytes % (Manual) 30, Monocytes % (Manual) 2, Eosinophils % ( Manual) 3, Basophils % (Manual) 0, Band Neutrophils 0, Platelet Estimate DecreasedL, Platelet Morphology Normal, Polychromasia 1+, Hypochromasia 2+, Anisocytosis 2+, Microcytosis 1+, Prothrombin Time 11.0, Prothromb Time International Ratio 1.0, Activated Partial Thromboplast Time 23, Sodium Level 145, Potassium Level 3.3L, Chloride Level 114H, Carbon Dioxide Level 22, Anion Gap 9, Blood Urea Nitrogen 24H, Creatinine 0.7, Estimat Glomerular Filtration Rate , Glucose Level 109H, Calcium Level 7.9L, Total Bilirubin 0.3, Aspartate Amino Transf (AST/SGOT) 16, Alanine Aminotransferase (ALT/SGPT) 14, Alkaline Phosphatase 53, Total Protein 5.3L, Albumin 2.7L, Globulin 2.6, Albumin/ Globulin Ratio 1.0, Amylase Level 29, Lipase 96 Height (Feet): 5 Height (Inches): 5.00 Weight (Pounds): 135 Objective Thin WW NCAT supple CTA RRR Abd soft NT ND no edema nonfocal Flor Carreon MD Apr 06, 2018 19:28
[2018-04-06 20:00] VITALS: BP 135/56
[2018-04-07] VITALS: BP 130/70
[2018-04-07 04:00] VITALS: BP 142/73
[2018-04-07 05:18] LABS: BASOPHILS % (AUTO) 0.4 % (0.0-2.0); EOSINOPHILS % (AUTO) 2.3 % (0.0-3.0); HEMATOCRIT 31.7 % (37.0-47.0); HEMOGLOBIN 10.1 G/DL (12.0-16.0); LYMPHOCYTES % (AUTO) 15.4 % (20.0-45.0); MEAN CORPUSCULAR VOLUME 78 FL (80-99); MONOCYTES % (AUTO) 8.1 % (1.0-10.0); NEUTROPHILS % (AUTO) 73.7 % (45.0-75.0); PLATELET COUNT 119 K/UL (150-450); RED BLOOD COUNT 4.05 M/UL (4.20-5.40); RED CELL DISTRIBUTION WIDTH 20.5 % (11.6-14.8); WHITE BLOOD COUNT 5.8 K/UL (4.8-10.8)
[2018-04-07] MEDS: D5NS 1,000 ML IV SCH (05:25)
[2018-04-07] MEDS: Levothyroxine 125mcg tab ORAL SCH (05:31)
[2018-04-07 05:38] LABS: INR 1.1 (0.9-1.1)
[2018-04-07 06:03] LABS: PHOSPHORUS 2.3 MG/DL (2.5-4.9)
[2018-04-07 06:04] LABS: ALANINE AMINOTRANSFERASE 18 U/L (12-78); ALBUMIN 2.7 G/DL (3.4-5.0); ALKALINE PHOSPHATASE 58 U/L (46-116); ANION GAP 10 mmol/L (5-15); ASPARTATE AMINO TRANSFERASE 25 U/L (15-37); BILIRUBIN,TOTAL 0.5 MG/DL (0.2-1.0); BLOOD UREA NITROGEN 8 mg/dL (7-18); CALCIUM 7.9 MG/DL (8.5-10.1); CARBON DIOXIDE 22 MMOL/L (21-32); CHLORIDE 111 MMOL/L (98-107); CREATININE 0.6 MG/DL (0.55-1.30); POTASSIUM 3.3 MMOL/L (3.5-5.1); SODIUM 142 MMOL/L (136-145)
[2018-04-07 08:00] VITALS: BP 152/85
[2018-04-07] MEDS: ALPRAZolam 0.25mg tab ORAL SCH ×2 (08:07→13:00)
--- NOTE | 2018-04-07 10:56 | Pulmonology Progress Note ---
Assessment/Plan Problems: (1) Gastrointestinal hemorrhage (2) Anemia due to GI blood loss (3) Essential tremor (4) Hypothyroidism (5) History of hypertension Assessment/Plan on Alprazolam, as requested by patient for tremors tolerating diet dc iv fluids pathology report reviewed, negative H. pylori prbc prn to keep Hem> 8 H2 blockers continue synthryroid monitor BP dvt prophylaxis symptomatic treatment Subjective Interval Events: eating well, endoscopy showed gastritis and HH Constitutional: Reports: no symptoms HEENT: Repors: no symptoms Allergies: Coded Allergies: No Known Allergies (Unverified , 04/05/18) Objective Last 24 Hour Vital Signs Date Time Temp Pulse Resp B/P (MAP) Pulse Ox O2 Delivery O2 Flow Rate FiO2 04/07/18 08:00 51 04/07/18 08:00 97.7 53 20 152/85 (107) 96 04/07/18 08:00 Nasal Cannula 2.0 04/07/18 04:00 54 04/07/18 04:00 Nasal Cannula 2.0 04/07/18 04:00 97.6 61 20 142/73 (96) 96 04/07/18 00:00 Nasal Cannula 2.0 04/07/18 00:00 57 04/07/18 00:00 98.0 62 20 130/70 (90) 96 04/06/18 20:00 Nasal Cannula 2.0 04/06/18 20:00 97.9 58 18 135/56 (82) 98 04/06/18 19:58 61 04/06/18 16:00 99.1 80 22 102/65 (77) 100 04/06/18 16:00 Nasal Cannula 2.0 04/06/18 16:00 62 04/06/18 12:00 98.2 93 16 139/63 (88) 100 04/06/18 12:00 63 04/06/18 12:00 Nasal Cannula 2.0 Intake and Output 04/06/18 04/07/18 18:59 06:59 Intake Total 1660 ml 916.81 ml Output Total 4 ml Balance 1656 ml 916.81 ml Intake Oral 360 ml IV Total 800 ml 916.81 ml Blood Product 500 ml Output Urine Total 3 ml Stool Total 1 ml # Voids 1 # Bowel Movements 1 General Appearance: WD/WN HEENT: normocephalic, atraumatic Respiratory/Chest: chest wall non-tender, normal breath sounds Cardiovascular: normal rate Abdomen: normal bowel sounds, soft, non tender, no organomegaly Genitourinary: normal external genitalia Skin: no lesions 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 Complete 04/05/18 11:10 Rectal Mucosa - Final NO CARBAPENEM-RESISTANT ENTEROBACTERI... Complete Laboratory Tests 04/07/18 03:00: White Blood Count 5.8, Red Blood Count 4.05L, Hemoglobin 10.1#L, Hematocrit 31.7 #L, Mean Corpuscular Volume 78L, Mean Corpuscular Hemoglobin 25.0L, Mean Corpuscular Hemoglobin Concent 31.9L, Red Cell Distribution Width 20.5H, Platelet Count 119L, Mean Platelet Volume 7.3, Neutrophils (%) (Auto) 73.7, Lymphocytes (%) (Auto) 15.4L, Monocytes (%) (Auto) 8.1, Eosinophils (%) (Auto) 2.3, Basophils (%) (Auto) 0.4, Prothrombin Time 11.2, Prothromb Time International Ratio 1.1, Activated Partial Thromboplast Time 27, Sodium Level 142, Potassium Level 3.3L, Chloride Level 111H, Carbon Dioxide Level 22, Anion Gap 10, Blood Urea Nitrogen 8, Creatinine 0.6, Estimat Glomerular Filtration Rate , Glucose Level 102, Calcium Level 7.9L, Phosphorus Level 2.3L, Magnesium Level 1.6L, Total Bilirubin 0.5, Aspartate Amino Transf (AST/SGOT) 25, Alanine Aminotransferase (ALT/SGPT) 18, Alkaline Phosphatase 58, Total Protein 5.4L, Albumin 2.7L, Globulin 2.7, Albumin/Globulin Ratio 1.0 Current Medications Medications (Trade) Dose Ordered Sig/Kevin Route PRN Reason Start Time Stop Time Status Last Admin Dose Admin Acetaminophen (Tylenol) 650 mg Q4H PRN ORAL fever 04/05/18 13:15 05/05/18 13:14 04/07/18 10:04 Alprazolam (Xanax) 0.25 mg TID ORAL 04/06/18 13:00 04/13/18 12:59 04/07/18 08:07 Dextrose (Dextrose 50%) 25 ml Q30M PRN IV Hypoglycemia 04/05/18 13:15 05/05/18 13:14 Dextrose (Dextrose 50%) 50 ml Q30M PRN IV Hypoglycemia 04/05/18 13:15 05/05/18 13:14 Dextrose/Sodium Chloride 1,000 ml @ 100 mls/hr Q10H IV 04/05/18 15:00 05/05/18 14:59 04/07/18 05:25 Diphenhydramine HCl (Benadryl) 25 mg HSPRN PRN ORAL Insomnia 04/05/18 20:15 05/05/18 20:14 04/06/18 20:17 Levothyroxine Sodium (Synthroid) 125 mcg DAILY@0630 ORAL 04/06/18 06:30 05/06/18 06:29 04/07/18 05:31 Magnesium Sulfate 100 ml @ 100 mls/hr Q1H IVPB 04/07/18 11:00 04/07/18 12:59 Nitroglycerin (Ntg) 0.4 mg Q5M X 3 DOSES PRN SL Prn Chest Pain 04/05/18 13:15 05/05/18 13:14 Ondansetron HCl (Zofran) 4 mg Q6H PRN IVP Nausea & Vomiting 04/05/18 13:15 05/05/18 13:14 04/06/18 20:17 Potassium Phosphate 30 mm/ Sodium Chloride 285 ml @ 47.5 mls/hr ONCE ONCE IV 04/07/18 13:00 04/07/18 18:59 Dioni Cabrera MD Apr 07, 2018 10:56
--- NOTE | 2018-04-07 10:56 | GI Progress Note ---
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 Park. Assessment/Plan Assessment - Anemia - negative prior GI w/u - declines further w/u here Recommendations - RBC transfusion today - monitor H&H - d/c planning - f/u with prior MD - recommend repeat capsule endoscopy in future with primary GI The patient was seen and examined at bedside and all new and available data was reviewed in the patients chart. I agree with the above findings, impression and plan. (Patient seen earlier today. Signature stamp does not reflect patient encounter time.). - Molina Park MD Subjective Gastrointestinal/Abdominal: Reports: no symptoms Subjective wants to be discharged refused colonoscopy Objective Last 24 Hour Vital Signs Date Time Temp Pulse Resp B/P (MAP) Pulse Ox O2 Delivery O2 Flow Rate FiO2 04/07/18 08:00 51 04/07/18 08:00 97.7 53 20 152/85 (107) 96 04/07/18 08:00 Nasal Cannula 2.0 04/07/18 04:00 54 04/07/18 04:00 Nasal Cannula 2.0 04/07/18 04:00 97.6 61 20 142/73 (96) 96 04/07/18 00:00 Nasal Cannula 2.0 04/07/18 00:00 57 04/07/18 00:00 98.0 62 20 130/70 (90) 96 04/06/18 20:00 Nasal Cannula 2.0 04/06/18 20:00 97.9 58 18 135/56 (82) 98 04/06/18 19:58 61 04/06/18 16:00 99.1 80 22 102/65 (77) 100 04/06/18 16:00 Nasal Cannula 2.0 04/06/18 16:00 62 04/06/18 12:00 98.2 93 16 139/63 (88) 100 04/06/18 12:00 63 04/06/18 12:00 Nasal Cannula 2.0 Intake and Output 04/06/18 04/07/18 19:00 07:00 Intake Total 1560 ml 1016.81 ml Output Total 4 ml Balance 1556 ml 1016.81 ml Intake Oral 360 ml IV Total 700 ml 1016.81 ml Blood Product 500 ml Output Urine Total 3 ml Stool Total 1 ml # Voids 1 # Bowel Movements 1 Laboratory Tests Test 04/07/18 03:00 White Blood Count 5.8 K/UL (4.8-10.8) Red Blood Count 4.05 M/UL (4.20-5.40) L Hemoglobin 10.1 G/DL (12.0-16.0) #L Hematocrit 31.7 % (37.0-47.0) #L Mean Corpuscular Volume 78 FL (80-99) L Mean Corpuscular Hemoglobin 25.0 PG (27.0-31.0) L Mean Corpuscular Hemoglobin Concent 31.9 G/DL (32.0-36.0) L Red Cell Distribution Width 20.5 % (11.6-14.8) H Platelet Count 119 K/UL (150-450) L Mean Platelet Volume 7.3 FL (6.5-10.1) Neutrophils (%) (Auto) 73.7 % (45.0-75.0) Lymphocytes (%) (Auto) 15.4 % (20.0-45.0) L Monocytes (%) (Auto) 8.1 % (1.0-10.0) Eosinophils (%) (Auto) 2.3 % (0.0-3.0) Basophils (%) (Auto) 0.4 % (0.0-2.0) Prothrombin Time 11.2 SEC (9.30-11.50) Prothromb Time International Ratio 1.1 (0.9-1.1) Activated Partial Thromboplast Time 27 SEC (23-33) Sodium Level 142 MMOL/L (136-145) Potassium Level 3.3 MMOL/L (3.5-5.1) L Chloride Level 111 MMOL/L (98-107) H Carbon Dioxide Level 22 MMOL/L (21-32) Anion Gap 10 mmol/L (5-15) Blood Urea Nitrogen 8 mg/dL (7-18) Creatinine 0.6 MG/DL (0.55-1.30) Estimat Glomerular Filtration Rate mL/min (>60) Glucose Level 102 MG/DL (74-106) Calcium Level 7.9 MG/DL (8.5-10.1) L Phosphorus Level 2.3 MG/DL (2.5-4.9) L Magnesium Level 1.6 MG/DL (1.8-2.4) L Total Bilirubin 0.5 MG/DL (0.2-1.0) Aspartate Amino Transf (AST/SGOT) 25 U/L (15-37) Alanine Aminotransferase (ALT/SGPT) 18 U/L (12-78) Alkaline Phosphatase 58 U/L (46-116) Total Protein 5.4 G/DL (6.4-8.2) L Albumin 2.7 G/DL (3.4-5.0) L Globulin 2.7 g/dL Albumin/Globulin Ratio 1.0 (1.0-2.7) Height (Feet): 5 Height (Inches): 5.00 Weight (Pounds): 135 General Appearance: WD/WN, no apparent distress, alert Cardiovascular: normal rate Respiratory/Chest: normal breath sounds, no respiratory distress Abdominal Exam: normal bowel sounds, non tender, soft Extremities: normal range of motion, non-tender Reba Hunter TOOL MARKER Apr 07, 2018 10:56
--- NOTE | 2018-04-07 11:54 | Diagnostic Imaging Report ---
APPROVED REPORT CPT Code: 42766 Present Symptoms Comments: R/O DVT BILATERAL: Imaging reveals a patent deep venous system bilaterally. There is no evidence of thrombus within the femoral, popliteal or tibial segments. The greater saphenous veins are also within normal limits. Doppler indicates normal spontaneous flow within these segments.
[2018-04-07 12:00] VITALS: BP 135/55
--- NOTE | 2018-04-07 12:51 | General Progress Note ---
Assessment/Plan Problem List: (1) HTN (hypertension) ICD Codes: I10 - Essential (primary) hypertension SNOMED: 76471938 (2) Hypothyroid ICD Codes: E03.9 - Hypothyroidism, unspecified SNOMED: 18890823 (3) Malnutrition ICD Codes: E46 - Unspecified protein-calorie malnutrition SNOMED: 49861881 (4) History of hypertension ICD Codes: Z86.79 - Personal history of other diseases of the circulatory system SNOMED: 028081260 (5) Hypothyroidism ICD Codes: E03.9 - Hypothyroidism, unspecified SNOMED: 12636992 (6) Gastrointestinal hemorrhage ICD Codes: K92.2 - Gastrointestinal hemorrhage, unspecified SNOMED: 28198757 (7) Anemia due to GI blood loss 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 dc if clear by all Subjective Constitutional: Reports: weakness Allergies: Coded Allergies: No Known Allergies (Unverified , 04/05/18) All Systems: reviewed and negative except above Subjective sitting calm wants to go home Objective Last 24 Hour Vital Signs Date Time Temp Pulse Resp B/P (MAP) Pulse Ox O2 Delivery O2 Flow Rate FiO2 04/07/18 12:00 Nasal Cannula 2.0 04/07/18 12:00 97.5 54 20 135/55 (81) 96 04/07/18 08:00 51 04/07/18 08:00 97.7 53 20 152/85 (107) 96 04/07/18 08:00 Nasal Cannula 2.0 04/07/18 04:00 54 04/07/18 04:00 Nasal Cannula 2.0 04/07/18 04:00 97.6 61 20 142/73 (96) 96 04/07/18 00:00 Nasal Cannula 2.0 04/07/18 00:00 57 04/07/18 00:00 98.0 62 20 130/70 (90) 96 04/06/18 20:00 Nasal Cannula 2.0 04/06/18 20:00 97.9 58 18 135/56 (82) 98 04/06/18 19:58 61 04/06/18 16:00 99.1 80 22 102/65 (77) 100 04/06/18 16:00 Nasal Cannula 2.0 04/06/18 16:00 62 Intake and Output 04/06/18 04/07/18 18:59 06:59 Intake Total 1660 ml 916.81 ml Output Total 4 ml Balance 1656 ml 916.81 ml Intake Oral 360 ml IV Total 800 ml 916.81 ml Blood Product 500 ml Output Urine Total 3 ml Stool Total 1 ml # Voids 1 # Bowel Movements 1 Laboratory Tests 04/07/18 03:00: White Blood Count 5.8, Red Blood Count 4.05L, Hemoglobin 10.1#L, Hematocrit 31.7 #L, Mean Corpuscular Volume 78L, Mean Corpuscular Hemoglobin 25.0L, Mean Corpuscular Hemoglobin Concent 31.9L, Red Cell Distribution Width 20.5H, Platelet Count 119L, Mean Platelet Volume 7.3, Neutrophils (%) (Auto) 73.7, Lymphocytes (%) (Auto) 15.4L, Monocytes (%) (Auto) 8.1, Eosinophils (%) (Auto) 2.3, Basophils (%) (Auto) 0.4, Prothrombin Time 11.2, Prothromb Time International Ratio 1.1, Activated Partial Thromboplast Time 27, Sodium Level 142, Potassium Level 3.3L, Chloride Level 111H, Carbon Dioxide Level 22, Anion Gap 10, Blood Urea Nitrogen 8, Creatinine 0.6, Estimat Glomerular Filtration Rate , Glucose Level 102, Calcium Level 7.9L, Phosphorus Level 2.3L, Magnesium Level 1.6L, Total Bilirubin 0.5, Aspartate Amino Transf (AST/SGOT) 25, Alanine Aminotransferase (ALT/SGPT) 18, Alkaline Phosphatase 58, Total Protein 5.4L, Albumin 2.7L, Globulin 2.7, Albumin/Globulin Ratio 1.0 Height (Feet): 5 Height (Inches): 5.00 Weight (Pounds): 135 General Appearance: alert EENT: normal ENT inspection Neck: normal alignment Cardiovascular: normal peripheral pulses, normal rate, regular rhythm Respiratory/Chest: chest wall non-tender, lungs clear, normal breath sounds Abdomen: normal bowel sounds, non tender, soft Extremities: normal inspection Edema: no edema noted Arm (L), no edema noted Arm (R), no edema noted Leg (L), no edema noted Leg (R), no edema noted Pedal (L), no edema noted Pedal (R), no edema noted Generalized Neurologic: responsive, motor weakness Skin: normal pigmentation, warm/dry Hima Martins DO Apr 07, 2018 12:51
[2018-04-07] MEDS ORDERED: Potassium Phosphate 30 MM in NS 275 ML IV ONE (13:00)
[2018-04-07] MEDS ORDERED: NS 275ml ONE ×2 (14:58)
[2018-04-07] MEDS ORDERED: Tubing IV Secondary IV ONE (14:58)
[2018-04-07] MEDS ORDERED: D5NS 1000ml IV ONE (14:58)
[2018-04-07] MEDS ORDERED: Tubing Blood Filter IV ONE (14:58)
--- NOTE | 2018-04-07 18:11 | General Progress Note ---
Assessment/Plan Assessment/Plan Assessment - Anemia - negative prior GI w/u - declines further w/u here Recommendations - d/c planning - f/u with prior MD Subjective Allergies: Coded Allergies: No Known Allergies (Unverified , 04/05/18) Subjective Above noted H&H higher wants to be d/c'd advised to f/u with primary GI team [facility] after d/c Objective Last 24 Hour Vital Signs Date Time Temp Pulse Resp B/P (MAP) Pulse Ox O2 Delivery O2 Flow Rate FiO2 04/07/18 12:00 Nasal Cannula 2.0 04/07/18 12:00 97.5 54 20 135/55 (81) 96 04/07/18 12:00 50 04/07/18 08:00 51 04/07/18 08:00 97.7 53 20 152/85 (107) 96 04/07/18 08:00 Nasal Cannula 2.0 04/07/18 04:00 54 04/07/18 04:00 Nasal Cannula 2.0 04/07/18 04:00 97.6 61 20 142/73 (96) 96 04/07/18 00:00 Nasal Cannula 2.0 04/07/18 00:00 57 04/07/18 00:00 98.0 62 20 130/70 (90) 96 04/06/18 20:00 Nasal Cannula 2.0 04/06/18 20:00 97.9 58 18 135/56 (82) 98 04/06/18 19:58 61 Intake and Output 04/06/18 04/07/18 18:59 06:59 Intake Total 1660 ml 916.81 ml Output Total 4 ml Balance 1656 ml 916.81 ml Intake Oral 360 ml IV Total 800 ml 916.81 ml Blood Product 500 ml Output Urine Total 3 ml Stool Total 1 ml # Voids 1 # Bowel Movements 1 Laboratory Tests 04/07/18 03:00: White Blood Count 5.8, Red Blood Count 4.05L, Hemoglobin 10.1#L, Hematocrit 31.7 #L, Mean Corpuscular Volume 78L, Mean Corpuscular Hemoglobin 25.0L, Mean Corpuscular Hemoglobin Concent 31.9L, Red Cell Distribution Width 20.5H, Platelet Count 119L, Mean Platelet Volume 7.3, Neutrophils (%) (Auto) 73.7, Lymphocytes (%) (Auto) 15.4L, Monocytes (%) (Auto) 8.1, Eosinophils (%) (Auto) 2.3, Basophils (%) (Auto) 0.4, Prothrombin Time 11.2, Prothromb Time International Ratio 1.1, Activated Partial Thromboplast Time 27, Sodium Level 142, Potassium Level 3.3L, Chloride Level 111H, Carbon Dioxide Level 22, Anion Gap 10, Blood Urea Nitrogen 8, Creatinine 0.6, Estimat Glomerular Filtration Rate , Glucose Level 102, Calcium Level 7.9L, Phosphorus Level 2.3L, Magnesium Level 1.6L, Total Bilirubin 0.5, Aspartate Amino Transf (AST/SGOT) 25, Alanine Aminotransferase (ALT/SGPT) 18, Alkaline Phosphatase 58, Total Protein 5.4L, Albumin 2.7L, Globulin 2.7, Albumin/Globulin Ratio 1.0 Height (Feet): 5 Height (Inches): 5.00 Weight (Pounds): 135 Objective Thin WW NCAT supple CTA RRR Abd soft NT ND no edema nonfocal Flor Carreon MD Apr 07, 2018 18:11
--- NOTE | 2018-04-10 14:51 | Discharge Summary ---
Discharge Summary Discharge Summary _ DATE OF ADMISSION: 03/28/2018 DATE OF DISCHARGE: 04/07/2018 REASON FOR ADMISSION: 88 years old female with past medical history of hypothyroidism, depression w, as brought by ambulance from her nephew home. Patient appeared to be very weak, reported diarrhea . No chest pain or shortness of breath ,no abdominal pain. Per nephew, patient at baseline healthy and independent 88 years old female who lives at [facility]. She was in [place] on her way to [facility] when she became suddenly weak and with diarrhea. Patient had similar symptoms in the past. Patient had prior EGD and colonoscopy without any significant findings . Patient required blood transfusion on few separate times. Patient was not on any anticoagulation medications. Upon evaluation vital signs were stable. Laboratory workup revealed severe anemia with hemoglobin 5.0, hematocrit 17.8 , MCV 65, no leukocytosis ,stable coagulation profile. Stable electrolytes. BUN 41, creatinine 0.7, glucose 148. Urinalysis revealed few bacteria and mild pyuria 5-10. Chest x-ray revealed no acute cardiopulmonary disease. EKG revealed normal sinus rhythm, no acute ischemic changes. Patient was admitted with diagnoses of gastrointestinal hemorrhage, anemia due to GI blood loss CONSULTANTS: pulmonary Dr. Cabrera GI specialist Dr. Park [facility] COURSE: Patient admitted to [facility]. Patient started on IV fluid and PPI and initially kep on clear liquid diet. Patient undergone EGD which revealed no evidence of acute GI bleeding, but demonstrated gastritis and large hiatal hernia. GI specialist recommended colonoscopy. Patient declined further GI workup at [place]. Patient was recommended by GI specialist to have a capsule endoscopy . Biopsy of antrum revealed mild chronic gastritis , but no H. pylori infection was identified. Hemoglobin and hematocrit were closely monitored with goal to keep hemoglobin above 7 . Patient undergone total of 4 units of packed red blood cell transfusion. Prior to discharge hemoglobin 10.5 hematocrit 31.7. Blood pressure was closely monitored and managed. Supplemental oxygen provided as needed to keep pulse oximetry above 92% Synthroid continued. Patient was working with physical and occupational therapists. Dietary recommendations implemented in plan of care. Patient was able to tolerate diet, diarrhea resolved, hemodynamically stable. Patient was ready for discharge. Outpatient follow up with GI specialist at [place] and capsule endoscopy recommended. FINAL DIAGNOSES: GI hemorrhage Anemia due to acute blood loss Status post EGD Gastritis Large hiatal hernia Protein calorie malnutrition Hypothyroidism History of hypertension DISCHARGE INSTRUCTIONS: Patient was discharged home Follow up with primary care provider in one week. I have been assigned to dictate discharge summary for this account. I was not involved in the patient's management. Linda Munoz NP Apr 10, 2018 14:51
== END 2018-04-07 14:59 | disposition home or self-care (01) | DRG 378 ==
LOC: EDBD 09:51 → EMR 10:35 → EDBEDREQSVC 10:48 → 2W 11:07 → EDBEDREQSVC 13:17 → EDBEDREQ 13:17 → 2W 04-06 20:37
PROC: 30233N1 Transfusion of Nonautologous Red Blood Cells into Peripheral Vein, Percutaneous Approach (ICD-10-PCS; principal; 2018-04-05 14:41)
DX: K92.2 Gastrointestinal hemorrhage, unspecified (principal); D62 Acute posthemorrhagic anemia; E46 Unspecified protein-calorie malnutrition; K29.70 Gastritis, unspecified, without bleeding; K44.9 Diaphragmatic hernia without obstruction or gangrene; E03.9 Hypothyroidism, unspecified; I10 Essential (primary) hypertension; G25.0 Essential tremor; Z90.49 Acquired absence of other specified parts of digestive tract
CPT/HCPCS: 36415; 71045; 80053; 81001; 82150; 83690; 83735; 84100; 85007; 85025; 85610; 85730; 86850; 86900; 86901; 86920; 87081; 93005; 93970; 94003; 94150; 96361; 96374; 96375; 99291; J2405; J8499